=== PATIENT | female | born 1975 | race Caucasian/White ===

== ENCOUNTER 2017-02-19 15:50 | Emergency (ER) | payer MEDICARE | END 2017-02-19 16:59 | disposition home or self-care (01) | LOC: ER1 15:50 | DX: S93.601A Unspecified sprain of right foot, initial encounter (principal); E78.5 Hyperlipidemia, unspecified; I10 Essential (primary) hypertension; K21.9 Gastro-esophageal reflux disease without esophagitis; E11.9 Type 2 diabetes mellitus without complications; F17.210 Nicotine dependence, cigarettes, uncomplicated; X50.1XXA Overexertion from prolonged static or awkward postures, initial encounter; Y92.009 Unspecified place in unspecified non-institutional (private) residence as the place of occurrence of the external cause | CPT/HCPCS: 73630; 99283 ==

== ENCOUNTER 2020-12-07 14:21 | Emergency (ER) | payer OTHER ==
[~2020-12-07 14:21] MED LIST: AZITHROMYCIN250 MG PO; BYDUREON P2 MG/0.65 SQ; COZAAR25 MG PO; ECOTRIN81 MG PO; FISH OIL EC 1,1 EACH PO; GLUCOPHAGE XR500 MG PO; HYDROCHLOROTHIA25 MG PO; IPRAT-ALBUT 0.5-3 ML INH; LIPITOR TAB 1010 MG PO; LOPRESSOR 25 MG25 MG PO; METHYLPREDNISOLO4 M1 PO; PROTONIX40 MG PO; RANITIDINE HCL150 M1 PO; SYMBICORT 160-1 INHA INH; VANCOMYCIN HCL250 MG PO; VENTOLIN HFA 66.7 GM INH; VITAMIN D35000 UNI1 PO; ZITHROMAX250 MG PO
[2020-12-07 15:13] LABS: HEMOGLOBIN 12.9 gm/dl (12.3-15.3); RED BLOOD COUNT 5.19 M/UL (4.00-5.10); WHITE BLOOD COUNT 11.8 K/UL (4.5-11.0)
[2020-12-07 15:41] LABS: BUN/CREATININE RATIO 21 (0-10)
[2020-12-07] MEDS ORDERED: ZOFRAN4 MG PO (18:31)
[2020-12-07] MEDS ORDERED: CEFUROXIME500 MG PO (18:36)
== END 2020-12-07 19:39 | disposition home or self-care (01) ==
LOC: ER1 14:21
PROVIDERS: Emergency Medicine
DX: N39.0 Urinary tract infection, site not specified (principal); R19.7 Diarrhea, unspecified; R53.1 Weakness; F17.210 Nicotine dependence, cigarettes, uncomplicated; Z20.822 Contact with and (suspected) exposure to COVID-19
CPT/HCPCS: 71045; 80053; 81001; 83690; 85025; 85652; 86140; 93005; 96374; 99285; J2405; J7030; U0002

== ENCOUNTER 2022-05-21 11:18 | Emergency (ER) | payer OTHER ==
[~2022-05-21 11:18] MED LIST changes: +CEFUROXIME500 MG PO; +ZOFRAN4 MG PO
[2022-05-21 13:00] LABS: HEMOGLOBIN 11.1 gm/dl (12.3-15.3); RED BLOOD COUNT 4.28 M/UL (4.00-5.10); WHITE BLOOD COUNT 8.7 K/UL (4.5-11.0)
[2022-05-21 13:24] LABS: BUN/CREATININE RATIO 13 (0-10)
[2022-05-21] MEDS ORDERED: DOXYCYCLINE HY100 M2 PO (14:07)
== END 2022-05-21 14:28 | disposition home or self-care (01) ==
LOC: ER1 11:18
PROVIDERS: Physician Assistant Medical
DX: L03.115 Cellulitis of right lower limb (principal); M79.605 Pain in left leg; R06.02 Shortness of breath
CPT/HCPCS: 71045; 80053; 82550; 82553; 83880; 84484; 85025; 85379; 87040; 93005; 93970; 99284